=== PATIENT | female | born 1970 | race African-American/Black ===

== ENCOUNTER 2016-12-22 12:34 | Inpatient (IN) | payer OTHER ==
[~2016-12-22] VITALS: Ht 167.6 cm; Wt 98.0 kg
--- NOTE | ~2016-12-22 | EKG ---
[address] [place] [address] ELECTROCARDIOGRAM REPORT Name: LAUREN NOVAK Room #: 207-P ADM IN M.R.#: [id number] Admission: 12/22/16 Attend Phys: Alessandra Carson Discharge: Date of : 68 Report #: [id number] THIS REPORT FOR: //name// [facility] ED Test Date: 2016-12-22 Test Time: 12:39:08 Pat Name: LAUREN NOVAK Department: Room: [facility] Gender: F Fountain Pen Turner: Marian MUIR : 1970 Requested By: Shreyas Bess Order Number: [id number] MD: Yefri Badillo Measurements Intervals [place] Rate: 96 P: 76 [place]: 162 QRS: 51 QRSD: 85 T: 36 QT: 360 QTc: 455 Interpretive Statements Sinus rhythm No significant abnormality No previous ECG available for comparison Electronically Signed On 12-22-2016 18:14:44 CDT by Yefri Badillo [email or web address] <ELECTRONICALLY SIGNED> By: Yefri Badillo MD, [facility] 12/22/16 1814 1239 1239 Yefri Badillo MD, FACC /EPI
[~2016-12-22 12:34] MED LIST: ACTOS15 MG PO; FLAGYL500 MG PO; HYDROCHLOROTHIA25 M1 PO; LISINOPRIL40 MG PO; ULTRAM 50MG TAB50 MG PO
[2016-12-22 12:42] VITALS: BP 155/86
[2016-12-22] MEDS ORDERED: TRADJENTA5 MG (12:45)
[2016-12-22 12:58] LABS: BASOPHILS 2.3 % (0.0-2.0); EOSINOPHILS 1.8 % (0.0-3.0); HEMATOCRIT 37.8 % (37.0-47.0); HEMOGLOBIN 12.5 gm/dL (12.0-15.0); LYMPHOCYTES 44.3 % (24.0-44.0); MCH 29.6 pg (26.0-34.0); MCHC 33.2 g/dL (28.0-37.0); MCV 89.4 fL (80.0-100.0); MONOCYTES 7.6 % (1.0-8.0); PLATELET COUNT 406 thou/uL (150-400); RBC 4.23 mil/uL (4.20-5.00); RDW 14.8 % (10.5-14.5); WBC 6.8 thou/uL (4.0-11.0)
[2016-12-22 13:02] LABS: MANUAL DIFF NO
[2016-12-22 13:10] LABS: ANION GAP 4 mmol/L (7-16); BUN 15 mg/dL (7-18); CALCIUM 8.9 mg/dL (8.5-10.1); CHLORIDE 102 mmol/L (98-107); CO2 29 mmol/L (21-32); CREATININE 1.1 mg/dL (0.6-1.0); GLUCOSE 280 mg/dL (74-106); SODIUM 135 mmol/L (136-145)
[2016-12-22 13:21] LABS: ALBUMIN 3.4 g/dL (3.4-5.0); ALKALINE PHOSPHATASE 77 U/L (46-116); DIRECT BILIRUBIN < 0.1 mg/dL (<0.1-0.3); NT-PRO BRAIN NAT PEPTIDE 13 pg/mL (<300); SGOT 31 U/L (15-37); SGPT 38 U/L (30-65); TOTAL BILIRUBIN 0.3 mg/dL (<0.1-1.0); TOTAL PROTEIN 7.9 g/dL (6.4-8.2); TROPONIN-I < 0.04 ng/mL (<0.04-0.07)
[2016-12-22 15:35] VITALS: BP 137/84
[2016-12-22 16:00] VITALS: BP 140/92
[2016-12-22 19:17] VITALS: BP 124/71
[2016-12-23 04:30] VITALS: BP 141/85
[2016-12-23 06:12] LABS: GLYCOHEMOGLOBIN (HGB A1C) 9.1 % (4.8-5.6)
[2016-12-23 07:23] LABS: ANION GAP 6 mmol/L (7-16); BUN 11 mg/dL (7-18); CALCIUM 8.1 mg/dL (8.5-10.1); CHLORIDE 105 mmol/L (98-107); CO2 27 mmol/L (21-32); CREATININE 0.9 mg/dL (0.6-1.0); GLUCOSE 224 mg/dL (74-106); POTASSIUM 4.2 mmol/L (3.5-5.1); SODIUM 138 mmol/L (136-145)
[2016-12-23 07:30] LABS: CHOLESTEROL 106 mg/dL (<200); HDL CHOLESTEROL 44 mg/dL (>40); LDL CHOLESTEROL 43 mg/dL (<100); PHOSPHORUS 2.7 mg/dL (2.5-4.9); TC:HDL 2.4 Ratio (Not establshd); TRIGLYCERIDE 99 mg/dL (<150); TROPONIN-I < 0.04 ng/mL (<0.04-0.07); VLDL 20 mg/dL (<40)
[2016-12-23 07:42] VITALS: BP 141/85
[2016-12-23 07:43] VITALS: BP 141/85
[2016-12-23 07:57] VITALS: BP 143/91
[2016-12-23 10:15] VITALS: BP 141/85
[2016-12-23 20:00] VITALS: BP 132/83
[2016-12-24 04:00] VITALS: BP 142/90
[2016-12-24 08:14] VITALS: BP 150/100
[2016-12-24 11:42] VITALS: BP 156/97
[2016-12-24 12:05] VITALS: BP 141/85
== END 2016-12-24 12:57 | disposition home or self-care (01) | DRG 313 ==
LOC: ER 12:34 → EROBS 14:24 → 2N 14:24
PROVIDERS: Hospitalist; Physician Assistant
DX: R07.89 Other chest pain (principal); I10 Essential (primary) hypertension; E11.9 Type 2 diabetes mellitus without complications; Z79.4 Long term (current) use of insulin; E66.9 Obesity, unspecified; Z79.899 Other long term (current) drug therapy; Z88.1 Allergy status to other antibiotic agents; Z82.49 Family history of ischemic heart disease and other diseases of the circulatory system; Z68.34 Body mass index [BMI] 34.0-34.9, adult
CPT/HCPCS: 10081